=== PATIENT | female | born 1960 | race Caucasian/White ===

== ENCOUNTER 2016-06-24 05:35 | Emergency (ER) | payer OTHER ==
[~2016-06-24] VITALS: Ht 170.2 cm; Wt 65.8 kg
[~2016-06-24 05:35] MED LIST: CYCL1TAB29 PO; IBUP800T23 PO
[2016-06-24 05:43] VITALS: BP 155/94; PULSE 80; RESP 18; TEMP 98.5; O2SAT 98
--- NOTE | 2016-06-24 06:12 | PD ---
HPI Chief Complaint: Cold / Flu Symptoms Time Seen by Provider: 06:03 Travel History International Travel<30 days: No Contact w/Intl Traveler<30days: No Traveled to known affect area: No History of Present Illness HPI 55-year-old female presents to the emergency department for complaint of severe epigastric pain worsened by movement and coughing. Patient has had cough times one week. Patient denies fever or chills. No hemoptysis. Patient has remote history of bronchitis and asthma. Patient also has history of Raynaud's. Patient states pain began after forceful coughing. Patient states pain has worsened with time. Patient states pain radiates into her back. No history of peptic ulcer disease status post previous cholecystectomy. Patient has taken no medications for pain relief. PFSH Past Medical History Narrative Medical Asthma, Raynauds, GERD, cholecystectomy, , tonsillectomy; no tobacco use; nursing notes reviewed Asthma: Yes COPD: No GERD: Yes Past Surgical History Section: Yes Cholecystectomy: Yes Tonsillectomy: Yes Social History Alcohol Use: Yes (OCC) Tobacco Use: No Substance Use: No Allergies-Medications (Allergen,Severity, Reaction): Coded Allergies: Adhesives (Verified Allergy, Severe, RASH, 06/24/16) Bee Sting (Verified Allergy, Severe, 06/24/16) Flu Vaccine (Verified Allergy, Severe, Anaphylaxis, 06/24/16) Morphine (Verified Allergy, Severe, ANAPHYLAXSIS, 06/24/16) Sulfites & Bisulfites (Verified Allergy, Severe, ANAPHYLAXSIS, 06/24/16) Coconut (Verified Allergy, Mild, 06/24/16) Reported Meds & Prescriptions Reported Meds & Active Scripts Active Reported Advil Allergy & Congestion (Tdxpwqgfkrmbdymv-Ffrkuyefpsvle-Ylksecmio) 4-10-200 Mg Tab 1 Tab PO Q4H PRN Mucinex DM (Dextromethorphan-Guaifenesin) 30-600 Mg Tab 1 Tab PO BID PRN Review of Systems Except as stated in HPI: all other systems reviewed are Neg General / Constitutional: No: Fever, Chills HENT: No: Congestion Cardiovascular: Positive: Chest Pain or Discomfort Respiratory: Positive: Cough, Shortness of Breath Gastrointestinal: Positive: Abdominal Pain Genitourinary: No: Flank Pain Musculoskeletal: No: Myalgias, Arthralgias Skin: No Rash Neurologic: No: Weakness Psychiatric: No: Anxiety Hematologic/Lymphatic: No: Lymph Node Enlargement Physical Exam Narrative GENERAL: Well-developed well-nourished female in obvious discomfort no respiratory distress SKIN: Warm and dry. HEAD: Normocephalic. EYES: No scleral icterus. No injection or drainage. NECK: Supple, trachea midline. No JVD or lymphadenopathy. CARDIOVASCULAR: Regular rate and rhythm without murmurs, gallops, or rubs. RESPIRATORY: Breath sounds equal bilaterally. No accessory muscle use. GASTROINTESTINAL: Abdomen soft, pain reproducible to direct palpation where there is tenderness to palpation over the epigastrium and xiphoid process with soft tissue swelling no ecchymosis no erythema no induration no increased warmth no fluctuance, nondistended. MUSCULOSKELETAL: No cyanosis, or edema. BACK: Nontender without obvious deformity. No CVA tenderness. Data Data Last Documented VS Vital Signs Date Time Temp Pulse Resp B/P Pulse Ox O2 Delivery O2 Flow Rate FiO2 06/24/16 06:38 80 20 98 Room Air 06/24/16 06:26 156/81 06/24/16 05:43 98.5 Orders Complete Blood Count With Diff (06/24/16 06:03) Basic Metabolic Panel (Bmp) (06/24/16 06:03) Magnesium (Mg) (06/24/16 06:03) Troponin I (06/24/16 06:03) Influenzae A/B Antigen (06/24/16 06:03) Iv Access Insert/Monitor (06/24/16 06:03) Ecg Monitoring (06/24/16 06:03) Oximetry (06/24/16 06:03) Oxygen Administration (06/24/16 06:03) Sodium Chloride 0.9% Flush (Ns Flush) (06/24/16 06:15) Albuterol-Ipratropium Neb (Duoneb Neb) (06/24/16 06:15) Chest, Pa & Lat (06/24/16 ) B-Type Natriuretic Peptide (06/24/16 06:03) Ketorolac Inj (Toradol Inj) (06/24/16 06:15) Electrocardiogram (06/24/16 ) Labs Laboratory Tests Test 06/24/16 06:15 White Blood Count 6.2 TH/MM3 Red Blood Count 4.68 MIL/MM3 Hemoglobin 15.1 GM/DL Hematocrit 44.5 % Mean Corpuscular Volume 95.1 FL Mean Corpuscular Hemoglobin 32.2 PG Mean Corpuscular Hemoglobin 33.9 % Concent Red Cell Distribution Width 13.9 % Platelet Count 287 TH/MM3 Mean Platelet Volume 8.3 FL Neutrophils (%) (Auto) 67.1 % Lymphocytes (%) (Auto) 20.4 % Monocytes (%) (Auto) 5.5 % Eosinophils (%) (Auto) 6.1 % Basophils (%) (Auto) 0.9 % Neutrophils # (Auto) 4.1 TH/MM3 Lymphocytes # (Auto) 1.3 TH/MM3 Monocytes # (Auto) 0.3 TH/MM3 Eosinophils # (Auto) 0.4 TH/MM3 Basophils # (Auto) 0.1 TH/MM3 CBC Comment DIFF FINAL Differential Comment Sodium Level 139 MEQ/L Potassium Level 4.0 MEQ/L Chloride Level 105 MEQ/L Carbon Dioxide Level 28.0 MEQ/L Anion Gap 6 MEQ/L Blood Urea Nitrogen 12 MG/DL Creatinine 0.72 MG/DL Estimat Glomerular Filtration 84 ML/MIN Rate Random Glucose 88 MG/DL Calcium Level 9.5 MG/DL Magnesium Level 2.4 MG/DL [facility] Medical Decision Making Medical Screen Exam Complete: Yes Emergency Medical Condition: Yes Medical Record Reviewed: Yes Interpretation(s) EKG: Normal sinus rhythm rate [address] elevation or injury pattern change or ectopy noted; artifact present CBC & BMP Diagram 06/24/16 06:15 Last Impressions Chest X-Ray 06/24/16 0000 Signed Impressions: Service Date/Time: Friday, June 24, 2016 06:30 - CONCLUSION: 1. No acute cardiopulmonary disease. José Manuel Marina MD Troponin I less than 0.02, not elevated Differential Diagnosis Chest pain, abdominal pain, bronchitis, pneumonia, rib fracture, pneumothorax, pneumomediastinum, PE, abdominal wall strain Narrative Course Patient placed on secured entrance monitor IV access obtained specimens collected and sent for resulting patient given updraft treatment of DuoNeb and Toradol 30 mg IV Chest x-ray reveals no acute infiltrate pneumothorax or pneumomediastinum CBC is automated differential metabolic panel values within normal range EKG sinus rhythm with no acute injury pattern change noted At 7:10 AM patient is clinically improved pain has significantly diminished and patient is no longer splinting with respirations. Diagnosis Primary Impression: Bronchitis Additional Impression: Abdominal wall strain Qualified Code: S39.011A - Abdominal wall strain, initial encounter Referrals: Primary Care Physician call for appointment Patient Instructions: General Instructions Additional Instructions: Increase fluid hydration Follow-up with primary care provider Monitor temperature every 4 hours with thermometer and take as needed acetaminophen/Tylenol for fever 100.4F or greater may also use ibuprofen/Advil/ Motrin every 6-8 hours as needed for fever 100.4F or greater or for pain associated with inflammation. Ibuprofen/Advil/Motrin may be taken 6 and a milligrams as often as every 6 hours. Avoid high-dose ibuprofen use for greater than 3-4 days Complete course of antibiotic as prescribed Take medication for pain as prescribed be aware that narcotic medication may impair judgment, delay reaction time, increased risk for fall or cause constipation Return to the emergency department for any concerns or change in condition Med/Other Pt SpecificInfo: Prescription(s) given Scripts E-Z Spacer-Aerosol Holding Chamber 1 Mis Mis #1 EA .ROUTE DIRECTED Ref 0 Prov:Jennifer Appiah MD 06/24/16 Albuterol 8.5 GM Inh (Proair Hfa 8.5 GM Inh)90 Mcg/Act Aer2 Puff INH Q4-6H PRN ( SHORTNESS OF BREATH) #1 INHALER Ref 0 108 mcg/actuation Prov:Jennifer Appiah MD 06/24/16 Hydrocodone-Acetaminophen (Lortab)5-325 Mg Tab1 Tab PO Q6H PRN (PAIN) #12 TAB Ref 0 Prov:Jennifer Appiah MD 06/24/16 Azithromycin (Zithromax Z-Chceo)250 Mg [id number] Mg PO DIRECTED #1 DSPK Ref 0 500 MG (2 tabs) day 1, then 1 tab days 2-5. Prov:Jennifer Appiah MD 06/24/16 Disposition: 01 DISCHARGE HOME Jennifer Appiah MD Jun 24, 2016 06:12
[2016-06-24 06:15] VITALS: O2SAT 96
[2016-06-24] MEDS ORDERED: RESP: ALBUTEROL 2.5 MG/IPRATROPIUM 0.5 MG NEB (SCH) INH ONE (06:15)
[2016-06-24] MEDS ORDERED: KETOROLAC TROMETHAMINE 30 MG/ML (IVP) VIAL IV PUSH ONE (06:15)
[2016-06-24] MEDS ORDERED: SODIUM CHLORIDE 0.9% FLUSH 5 ML FLUSH IVF PRN (06:15)
[2016-06-24 06:26] VITALS: BP 156/81; PULSE 80; RESP 20; O2SAT 98
[2016-06-24 06:27] LABS: AUTOMATED NEUTROPHIL # 4.1 TH/MM3 (1.8-7.7); BASOPHIL # 0.1 TH/MM3 (0-0.2); BASOPHIL % 0.9 % (0.0-2.0); EOSINOPHIL # 0.4 TH/MM3 (0-0.4); EOSINOPHIL % 6.1 % (0.0-4.0); HEMATOCRIT 44.5 % (35.0-46.0); HEMO FLAGS DIFF FINAL; LYMPH % 20.4 % (9.0-44.0); LYMPHOCYTE # 1.3 TH/MM3 (1.0-4.8); MEAN CELL VOLUME 95.1 FL (80.0-100.0); MEAN CORPUSCULAR HEMOGLOBIN 32.2 PG (27.0-34.0); MEAN CORPUSCULAR HGB CONC 33.9 % (32.0-36.0); MONO % 5.5 % (0.0-8.0); NEUT % 67.1 % (16.0-70.0); PLATELET COUNT 287 TH/MM3 (150-450); RED BLOOD COUNT 4.68 MIL/MM3 (4.00-5.30); RED CELL DISTRIBUTION WIDTH 13.9 % (11.6-17.2); WHITE BLOOD COUNT 6.2 TH/MM3 (4.0-11.0)
--- NOTE | 2016-06-24 06:46 | RADHPO ---
EXAM DATE/TIME: 06/24/2016 06:30 [facility] COMPARISON: No previous studies available for comparison. INDICATIONS : Cough and chest pain. MEDICAL HISTORY : None. SURGICAL HISTORY : None. ENCOUNTER: Initial ACUITY: 1 week PAIN SCORE: 10/10 LOCATION: Bilateral chest FINDINGS: PA and lateral views of the chest demonstrate the lungs to be symmetrically aerated without evidence of mass, infiltrate or effusion. The cardiomediastinal contours are unremarkable. Osseous structure s are intact. CONCLUSION: 1. No acute cardiopulmonary disease. José Manuel Marina MD on June 24, 2016 at 6:45 Board Certified Radiologist. This report was verified electronically.
[2016-06-24 06:51] LABS: CHLORIDE 105 MEQ/L (98-107); SODIUM (NA) 139 MEQ/L (136-145)
[2016-06-24 06:54] LABS: ANION GAP 6 MEQ/L (5-15); BLOOD UREA NITROGEN 12 MG/DL (7-18); MAGNESIUM 2.4 MG/DL (1.5-2.5)
[2016-06-24] MEDS ORDERED: MUCI30TA2 PO (06:54)
[2016-06-24] MEDS ORDERED: CHLO1TAB PO (06:54)
[2016-06-24 06:57] LABS: GLOMERULAR FILTRATION RATE 84 ML/MIN (>89)
[2016-06-24] MEDS ORDERED: ZITHTAB PO (07:09)
[2016-06-24] MEDS ORDERED: ALBUAER3 INH (07:09)
[2016-06-24] MEDS ORDERED: E-ZMIS3 (07:09)
[2016-06-24] MEDS ORDERED: HYDR-3533 PO (07:09)
[2016-06-24 07:19] VITALS: BP 136/81; PULSE 71; RESP 17; O2SAT 98
--- NOTE | 2016-06-24 15:26 | EKG ---
Date Performed: 06/24/2016 Time Performed: 06:22:04 PTAGE: 55 years EKG: Sinus rhythm Compared to prior tracing no significant change Normal ECG PREVIOUS TRACING : 07/24/2007 10.37 DOCTOR: Andreas Quintero Interpretating Date/Time 06/24/2016 15:24:07
== END 2016-06-24 07:27 | disposition home or self-care (01) ==
LOC: PHED 05:35
DX: S39.011A Strain of muscle, fascia and tendon of abdomen, initial encounter (principal); J40 Bronchitis, not specified as acute or chronic; I73.00 Raynaud's syndrome without gangrene; X50.3XXA Overexertion from repetitive movements, initial encounter; Y93.9 Activity, unspecified; Y92.9 Unspecified place or not applicable; Y99.9 Unspecified external cause status
CPT/HCPCS: 71020; 80048; 83735; 83880; 84484; 85025; 87804; 93005; 94664; 96374; 99284; J1885

== ENCOUNTER 2017-05-06 10:35 | Emergency (ER) | payer OTHER ==
[~2017-05-06] VITALS: Ht 170.2 cm; Wt 63.0 kg
[~2017-05-06 10:35] MED LIST changes: +ALBUAER3 INH; +CHLO1TAB PO; -CYCL1TAB29 PO; +E-ZMIS3; +HUMIBIDDM PO; +HYDR-3533 PO; -IBUP800T23 PO; +ZITHTAB PO
[2017-05-06 10:41] VITALS: BP 148/94; PULSE 119; RESP 16; TEMP 97.4; O2SAT 98
[2017-05-06] MEDS ORDERED: SODIUM CHLOR 0.9% 1000 ML INJ 1,000 ML IV SCH (10:58)
[2017-05-06 11:00] VITALS: O2SAT 96
[2017-05-06] MEDS ORDERED: SODIUM CHLOR 0.9% 1000 ML INJ 1,000 ML IV ONE (11:00)
[2017-05-06] MEDS ORDERED: SODIUM CHLORIDE 0.9% FLUSH 10 ML FLUSH IV FLUSH PRN (11:00)
[2017-05-06] MEDS ORDERED: ONDANSETRON HCL 4 MG/2 ML VIAL IVP ONE (11:00)
--- NOTE | 2017-05-06 11:07 | PD ---
HPI Chief Complaint: GI Complaint Time Seen by Provider: 10:46 Travel History International Travel<30 days: No Contact w/Intl Traveler<30days: No Traveled to known affect area: No History of Present Illness HPI The patient is a 56-year-old female who presents emergency department for nausea, vomiting, diarrhea that started last Sunday. The patient has persistent nausea and vomiting with decreased oral intake. She also complains of diarrhea which she describes as loose, watery, brown, without any visible blood. She does complain of mild abdominal bloating but denies any abdominal pain or cramping. She denies any associated fever, chills, or sweats. The patient denies any sick contacts at home. She denies any recent international travel or drinking well water. The patient does state her symptoms started initially with a mild headache and dry nonproductive cough, but she denies any company sore throat, chest pain, or shortness of breath. She does complain of mild dehydration. The patient works as a traveling scrub nurse, but denies any history of C. difficile. She denies any foul smell with her diarrhea. Symptoms are moderate without any alleviating or exacerbating factors. PFSH Past Medical History Asthma: Yes COPD: No Diminished Hearing: No GERD: Yes Past Surgical History Section: Yes Cholecystectomy: Yes Tonsillectomy: Yes Social History Alcohol Use: Yes (OCC) Tobacco Use: No Substance Use: No Allergies-Medications (Allergen,Severity, Reaction): Coded Allergies: Influenza Virus Vaccines (Unverified Allergy, Severe, Anaphylaxis, ) adhesive (Unverified Allergy, Severe, RASH, 05/06/17) bee venom protein (honey bee) (Unverified Allergy, Severe, 05/06/17) morphine (Unverified Allergy, Severe, ANAPHYLAXSIS, 05/06/17) sulfite (Unverified Allergy, Severe, ANAPHYLAXSIS, 05/06/17) coconut (Unverified Allergy, Mild, 05/06/17) Reported Meds & Prescriptions Reported Meds & Active Scripts Active No Active Prescriptions or Reported Medications Review of Systems Except as stated in HPI: all other systems reviewed are Neg General / Constitutional: No: Fever, Chills HENT: Positive: Headaches Respiratory: Positive: Cough, No: Shortness of Breath Gastrointestinal: Positive: Nausea, Vomiting, Diarrhea, No: Abdominal Pain Musculoskeletal: No: Myalgias, Arthralgias Skin: No Rash Physical Exam Narrative GENERAL: Awake, alert, pleasant 56 year-old female who appears her stated age and is in no acute respiratory distress. SKIN: Focused skin assessment warm/dry. HEAD: Atraumatic. Normocephalic. EYES: Pupils equal and round. No scleral icterus. No injection or drainage. ENT: No nasal bleeding or discharge. Dry mucous membranes. NECK: Trachea midline. No JVD. CARDIOVASCULAR: Regular, tachycardic with a heart rate 115. RESPIRATORY: No accessory muscle use. Clear to auscultation. Breath sounds equal bilaterally. GASTROINTESTINAL: Abdomen soft, non-tender, nondistended. No guarding or rigidity. No left lower quadrant tenderness. No tympany noted. MUSCULOSKELETAL: No obvious deformities. No clubbing. No cyanosis. No edema. NEUROLOGICAL: Awake and alert. No obvious cranial nerve deficits. Motor grossly within normal limits. Normal speech. PSYCHIATRIC: Appropriate mood and affect; insight and judgment normal. Data Data Last Documented VS Vital Signs Date Time Temp Pulse Resp B/P (MAP) Pulse Ox O2 Delivery O2 Flow Rate FiO2 05/06/17 12:59 100 18 141/62 (88) 97 Room Air 05/06/17 10:41 97.4 Orders Orders Complete Blood Count With Diff (05/06/17 10:58) Comprehensive Metabolic Panel (05/06/17 10:58) Lipase (05/06/17 10:58) Iv Access Insert/Monitor (05/06/17 10:58) Ecg Monitoring (05/06/17 10:58) Oximetry (05/06/17 10:58) Ondansetron Inj (Zofran Inj) (05/06/17 11:00) Sodium Chlor 0.9% 1000 Ml Inj (Ns 1000 M (05/06/17 10:58) Sodium Chloride 0.9% Flush (Ns Flush) (05/06/17 11:00) Sodium Chlor 0.9% 1000 Ml Inj (Ns 1000 M (05/06/17 11:00) Potassium Chloride (Kcl) (05/06/17 11:45) Labs Laboratory Tests Test 05/06/17 11:00 White Blood Count 12.5 TH/MM3 Red Blood Count 5.13 MIL/MM3 Hemoglobin 16.0 GM/DL Hematocrit 48.0 % Mean Corpuscular Volume 93.6 FL Mean Corpuscular Hemoglobin 31.3 PG Mean Corpuscular Hemoglobin Concent 33.4 % Red Cell Distribution Width 13.5 % Platelet Count 305 TH/MM3 Mean Platelet Volume 8.8 FL Neutrophils (%) (Auto) 80.8 % Lymphocytes (%) (Auto) 9.6 % Monocytes (%) (Auto) 7.1 % Eosinophils (%) (Auto) 2.0 % Basophils (%) (Auto) 0.5 % Neutrophils # (Auto) 10.0 TH/MM3 Lymphocytes # (Auto) 1.2 TH/MM3 Monocytes # (Auto) 0.9 TH/MM3 Eosinophils # (Auto) 0.3 TH/MM3 Basophils # (Auto) 0.1 TH/MM3 CBC Comment DIFF FINAL Differential Comment Blood Urea Nitrogen 20 MG/DL Creatinine 1.50 MG/DL Random Glucose 124 MG/DL Total Protein 9.4 GM/DL Albumin 4.1 GM/DL Calcium Level 9.9 MG/DL Alkaline Phosphatase 253 U/L Aspartate Amino Transf (AST/SGOT) 38 U/L Alanine Aminotransferase (ALT/SGPT) 62 U/L Total Bilirubin 0.2 MG/DL Sodium Level 132 MEQ/L Potassium Level 3.3 MEQ/L Chloride Level 100 MEQ/L Carbon Dioxide Level 21.7 MEQ/L Anion Gap 10 MEQ/L Estimat Glomerular Filtration Rate 36 ML/MIN Lipase 227 U/L MDM Medical Decision Making Medical Screen Exam Complete: Yes Emergency Medical Condition: Yes Medical Record Reviewed: Yes Interpretation(s) Laboratory Tests Test 05/06/17 11:00 White Blood Count 12.5 TH/MM3 Red Blood Count 5.13 MIL/MM3 Hemoglobin 16.0 GM/DL Hematocrit 48.0 % Mean Corpuscular Volume 93.6 FL Mean Corpuscular Hemoglobin 31.3 PG Mean Corpuscular Hemoglobin Concent 33.4 % Red Cell Distribution Width 13.5 % Platelet Count 305 TH/MM3 Mean Platelet Volume 8.8 FL Neutrophils (%) (Auto) 80.8 % Lymphocytes (%) (Auto) 9.6 % Monocytes (%) (Auto) 7.1 % Eosinophils (%) (Auto) 2.0 % Basophils (%) (Auto) 0.5 % Neutrophils # (Auto) 10.0 TH/MM3 Lymphocytes # (Auto) 1.2 TH/MM3 Monocytes # (Auto) 0.9 TH/MM3 Eosinophils # (Auto) 0.3 TH/MM3 Basophils # (Auto) 0.1 TH/MM3 CBC Comment DIFF FINAL Differential Comment Blood Urea Nitrogen 20 MG/DL Creatinine 1.50 MG/DL Random Glucose 124 MG/DL Total Protein 9.4 GM/DL Albumin 4.1 GM/DL Calcium Level 9.9 MG/DL Alkaline Phosphatase 253 U/L Aspartate Amino Transf (AST/SGOT) 38 U/L Alanine Aminotransferase (ALT/SGPT) 62 U/L Total Bilirubin 0.2 MG/DL Sodium Level 132 MEQ/L Potassium Level 3.3 MEQ/L Chloride Level 100 MEQ/L Carbon Dioxide Level 21.7 MEQ/L Anion Gap 10 MEQ/L Estimat Glomerular Filtration Rate 36 ML/MIN Lipase 227 U/L Differential Diagnosis Differential diagnosis includes gastroenteritis, enteritis, colitis, viral syndrome, food poisoning, C. difficile, dehydration, electrolyte abnormality, IBS. Narrative Course IV was established, labs are drawn and sent, and the patient was placed on cardiac telemetry monitoring and continuous pulse oximetry monitoring. The patient was administered Zofran and 2 L of IV fluids. The patient denies any fever or blood with the diarrhea, I doubt diagnostic stool studies are indicated or necessary. The patient's abdominal exam is benign, no tenderness, therefore, no CT was performed to evaluate for colitis. Patient's symptoms most likely a viral syndrome related versus possible food poisoning. The patient's white count and hemoglobin/hematocrit are elevated consistent with dehydration. Creatinine was elevated at 1.5. AST nail tear mildly elevated, however, less than 3 times the normal values. The patient's potassium was slightly low, was replaced orally. The patient appears to have dehydration secondary to probable viral gastroenteritis, was administered 2 L of fluids and potassium supplementation. The patient was reevaluated at 1:15 PM, her symptoms have improved. She'll be discharged home on Zofran, is advised of a clear liquid diet and advance as tolerated. Zofran as needed. Work excuse for 3 days. She will be provided a copy of her labs at discharge. Diagnosis Primary Impression: Gastroenteritis Patient Instructions: General Instructions Additional Instructions: Please provide the patient a copy of her labs at discharge. Clear liquid diet and advance as tolerated. Zofran as directed. Work excuse for 3 days. Med/Other Pt SpecificInfo: Prescription(s) given Scripts Ondansetron Odt (Zofran Odt) 4 Mg Tab 4 MG SL Q6HR Y for Nausea/Vomiting, #10 TAB 0 Refills Prov: Alexnadro Leon MD 05/06/17 Disposition: 01 DISCHARGE HOME Condition: Stable Alexandro Leon MD May 06, 2017 11:07
[2017-05-06 11:14] LABS: BASOPHIL # 0.1 TH/MM3 (0-0.2); BASOPHIL % 0.5 % (0.0-2.0); EOSINOPHIL # 0.3 TH/MM3 (0-0.4); LYMPH % 9.6 % (9.0-44.0); LYMPHOCYTE # 1.2 TH/MM3 (1.0-4.8); MEAN CELL VOLUME 93.6 FL (80.0-100.0); MEAN CORPUSCULAR HEMOGLOBIN 31.3 PG (27.0-34.0); MEAN CORPUSCULAR HGB CONC 33.4 % (32.0-36.0); MEAN PLATELET VOLUME 8.8 FL (7.0-11.0); MONO % 7.1 % (0.0-8.0); MONOCYTE # 0.9 TH/MM3 (0-0.9); NEUT % 80.8 % (16.0-70.0); PLATELET COUNT 305 TH/MM3 (150-450); RED BLOOD COUNT 5.13 MIL/MM3 (4.00-5.30); RED CELL DISTRIBUTION WIDTH 13.5 % (11.6-17.2); WHITE BLOOD COUNT 12.5 TH/MM3 (4.0-11.0)
[2017-05-06 11:23] LABS: CHLORIDE 100 MEQ/L (98-107); SODIUM (NA) 132 MEQ/L (136-145)
[2017-05-06 11:26] LABS: ALBUMIN 4.1 GM/DL (3.4-5.0); BICARBONATE 21.7 MEQ/L (21.0-32.0); BLOOD UREA NITROGEN 20 MG/DL (7-18); CALCIUM 9.9 MG/DL (8.5-10.1); GLUCOSE,RANDOM 124 MG/DL (74-106); LIPASE 227 U/L (73-393)
[2017-05-06 11:29] LABS: ALT (GPT) 62 U/L (10-53); AST (GOT) 38 U/L (15-37); GLOMERULAR FILTRATION RATE 36 ML/MIN (>89)
[2017-05-06 11:31] LABS: TOTAL BILIRUBIN ADULT 0.2 MG/DL (0.2-1.0); TOTAL PROTEIN 9.4 GM/DL (6.4-8.2)
[2017-05-06 11:32] LABS: ALKALINE PHOSPHATASE 253 U/L (45-117)
[2017-05-06] MEDS ORDERED: POTASSIUM CHLORIDE 20 MEQ CONTROLLED RELEASE TAB PO ONE (11:45)
[2017-05-06 12:59] VITALS: BP 141/62; PULSE 100; RESP 18; O2SAT 97
[2017-05-06] MEDS ORDERED: ZOFR4TAB3 SL (13:16)
== END 2017-05-06 13:39 | disposition home or self-care (01) ==
LOC: PHED 10:35
DX: K52.9 Noninfective gastroenteritis and colitis, unspecified (principal); E86.0 Dehydration; J45.909 Unspecified asthma, uncomplicated; K21.9 Gastro-esophageal reflux disease without esophagitis
CPT/HCPCS: 80053; 83690; 85025; 96361; 96374; 99284; J2405; J7030